=== PATIENT | female | born 2000 | race Two or more races ===

== ENCOUNTER 2021-08-12 05:29 | Inpatient (IN) | payer OTHER ==
[~2021-08-12] VITALS: Ht 157.5 cm; Wt 95.7 kg
[2021-08-12] MEDS ORDERED: PRENATABS RX T1 EACH (05:37)
== END 2021-08-13 18:04 | disposition home or self-care (01) | DRG 779 ==
LOC: ER 05:29 → OB/GYN 11:48
PROVIDERS: ADMIT Obstetrics & Gynecology; ATTEND Obstetrics & Gynecology
PROC: BU4CZZZ Ultrasonography of Uterus and Ovaries (ICD-10-PCS; 2021-08-12)
PROC: 10D17Z9 Manual Extraction of Products of Conception, Retained, Via Natural or Artificial Opening (ICD-10-PCS; principal; 2021-08-13 09:00)
DX: O03.1 Delayed or excessive hemorrhage following incomplete spontaneous abortion (principal); Z20.822 Contact with and (suspected) exposure to COVID-19